=== PATIENT | female | born 1960 | race Two or more races ===

== ENCOUNTER 2024-02-11 16:45 | Emergency (ER) | payer SELFPAY ==
[2024-02-11] MEDS: Ketorolac 60 MG/2 ML SDV IM ONE (17:59)
== END 2024-02-11 19:25 | disposition home or self-care (01) ==
LOC: JD.ED 16:45
DX: M25.511 Pain in right shoulder (principal); M79.621 Pain in right upper arm
CPT/HCPCS: 73030; 96372; 99283; J1885